=== PATIENT | male | born 1960 | race Caucasian/White ===

== ENCOUNTER 2016-11-03 13:03 | Day surgery (SDC) | payer MEDICARE, OTHER ==
[2016-11-03 14:10] VITALS: BP 128/69; PULSE 83; RESP 16; TEMP 98.1; O2SAT 95
[2016-11-03 14:20] VITALS: BP 119/64; PULSE 69; RESP 16; O2SAT 99
[2016-11-03] MEDS ORDERED: LIDOCAINE HCL 1% PF 30 ML VIAL ONE (14:27)
--- NOTE | 2016-11-03 15:58 | RADRPT ---
EXAM DATE/TIME: 11/03/2016 13:37 [place] COMPARISON: No previous studies available for comparison. EXTERNAL COMPARISON: [facility], US SOFT TISSUE NECK , Oct 24 2016. INDICATIONS : Right neck parotid gland. MEDICAL HISTORY : Hypercholesterolemia. Hypertension. SURGICAL HISTORY : Appendectomy. ENCOUNTER: Initial ACUITY: > 1 yr PAIN SCORE: 0/10 LOCATION: Right neck ORGAN: Right parotid gland SPECIMENS: Two core specimen(s) submitted for pathologic evaluation. DEVICE: 18 gauge Temno needle Post procedure scanning reveals no hematoma or other complication. The possibility does exist that the tissue obtained will be non-diagnostic. If the sample is non-kelley gnostic a repeat biopsy or surgical biopsy may need to be performed. TECHNIQUE: 1. Ultrasound guidance for needle biopsy. 2. Needle biopsy. The risks, benefits, and alternatives to ultrasound guided needle biopsy were explained to the patien t in detail including the risk of bleeding and infection. Written and verbal informed consent was ob tained. With the patient on the ultrasound table, images were obtained. Overlying skin was prepped and drape d in the usual sterile fashion and Lidocaine was utilized as a local anesthetic. A needle was advanced into the identified target and the number of specimens as above obtained and haji bmitted for pathologic evaluation. The patient tolerated the procedure well and left the ultrasound suite in stable condition. CONCLUSION: Uncomplicated ultrasound guided needle biopsy. Nicolas Silva MD on November 03, 2016 at 15:55 Board Certified Radiologist. This report was verified electronically.
[2016-12-19] MEDS ORDERED: GABA100C4 PO (13:32)
[2016-12-19] MEDS ORDERED: PRAV10TA PO (13:32)
[2016-12-19] MEDS ORDERED: VARE1PAK5 PO (13:32)
[2016-12-19] MEDS ORDERED: ATEN25TA PO (13:32)
== END 2016-11-03 14:25 | disposition home or self-care (01) ==
LOC: HRAD 13:03 → HRIP 13:05 → HRAD 14:25
PROVIDERS: ATTEND Otolaryngology Otolaryngology/Facial Plastic Surgery
DX: D11.0 Benign neoplasm of parotid gland (principal); E78.00 Pure hypercholesterolemia, unspecified; I10 Essential (primary) hypertension
CPT/HCPCS: 42400; 76942; 88305; 88307

== ENCOUNTER → 2016-12-20 | Day surgery (SDC) | payer MEDICARE, OTHER ==
[~2016-12-20] VITALS: Ht 172.7 cm; Wt 83.4 kg
[~2016-12-20] MED LIST: *morphine SULFATE 8 MG/ML PERIprocedure ONLY ONE; ACETAMINOPHEN/HYDROcodone 325 MG/7.5 MG TAB ONE; ATEN25TA PO; CHLORHEXIDINE GLUCONATE 2 % 1 PACK (2 CLOTHS) TOPICAL PRN; DO NOT ADM ANY ANTICOAGULANT DRUGS PRN; EPINEPHrine HCL (1:10,000) 1 MG/10 ML SYRINGE OTHER ONE; GABA100C4 PO; INSULIN HUMAN REGULAR 1,000 UNITS/10 ML VIAL SQ PRN; LACTATED RINGER'S 1000 ML INJ 1,000 ML IV ONE; LACTATED RINGER'S 1000 ML IV PRN; METOPROLOL TARTRATE 25 MG TAB ONE; METOPROLOL TARTRATE 25 MG TAB PO PRN; MIDAZOLAM HCL 2 MG/2 ML VIAL ONE; ONDANSETRON HCL 4 MG/2 ML VIAL IV PUSH ONE; POVIDONE IODINE 5% (ANTISEPSIS KIT) 4 APPLICATIONS EACH NARE PRN; PRAV10TA PO; PROPOFOL 200 MG/20 ML AMP IV ONE; SODIUM CHLORID 0.9% 500 ML IV PRN; SODIUM CHLORIDE 0.9% IV FLUSH ONE; VARE1PAK5 PO; ePHEDrine/NS 25 MG/5 ML SYR IV ONE; fentaNYL CITRATE 250 MCG/5 ML AMP ONE
[2016-12-20 11:45] VITALS: BP 148/77; PULSE 66; RESP 16; TEMP 98.1; O2SAT 99
[2016-12-20 12:08] LABS: AUTOMATED NEUTROPHIL # 3.5 TH/MM3 (1.8-7.7); BASOPHIL # 0.1 TH/MM3 (0-0.2); BASOPHIL % 0.8 % (0.0-2.0); EOSINOPHIL # 0.1 TH/MM3 (0-0.4); EOSINOPHIL % 1.4 % (0.0-4.0); HEMATOCRIT 45.9 % (39.0-51.0); HEMO FLAGS DIFF FINAL; LYMPH % 38.4 % (9.0-44.0); LYMPHOCYTE # 2.7 TH/MM3 (1.0-4.8); MEAN CORPUSCULAR HEMOGLOBIN 28.8 PG (27.0-34.0); MEAN CORPUSCULAR HGB CONC 33.4 % (32.0-36.0); MONO % 9.9 % (0.0-8.0); NEUT % 49.5 % (16.0-70.0); PLATELET COUNT 185 TH/MM3 (150-450); RED BLOOD COUNT 5.33 MIL/MM3 (4.50-5.90); RED CELL DISTRIBUTION WIDTH 14.5 % (11.6-17.2)
[2016-12-20 16:30] VITALS: BP 123/75; PULSE 65; RESP 16; TEMP 97.5; O2SAT 99
--- NOTE | 2016-12-20 22:50 | EKG ---
Date Performed: 12/20/2016 Time Performed: 11:44:31 PTAGE: 56 years EKG: Sinus rhythm INCOMPLETE RIGHT BUNDLE BRANCH BLOCK ABNORMAL ECG NO PREVIOUS TRACING DOCTOR: Victorina Carlos Interpretating Date/Time 12/20/2016 22:49:51
--- NOTE | 2016-12-25 14:24 | MP ---
cc: OLIVER GOLDSMITH MD DATE OF SURGERY 12/20/16 DATE OF 1960 PREOPERATIVE DIAGNOSIS Right parotid tumor. POSTOPERATIVE DIAGNOSIS Right parotid tumor PROCEDURE Right superficial parotidectomy with preservation of the facial nerve: [id number] Geovani Goldsmith JAVASCRIPT ENGINE[address] Dr. Kathy Carrera ANESTHESIA General. FINDINGS Right parotid tumor approximately 2.4 cm ESTIMATED BLOOD LOSS Minimal. SPECIMEN Right parotid tumor IMPLANTS Janny powder. COMPLICATIONS None. DISPOSITION To post anesthesia care unit in stable condition. INDICATIONS FOR SURGERY The patient is a pleasant 56-year-old male with a full blown right parotid tumor. This was confirmed with a CAT scan as well as ultrasound. 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 The patient wants to have it removed. Of note, the patient has a very strong history of smoking tobacco and he still smokes. We discussed using dixie for the skin to help with the preservation of the flap. The patient agreed. PROCEDURE IN DETAIL After informed consent was obtained, the patient's right face marked in the holding area and the area was prepped and draped in normal sterile fashion. Of note, all the preoperative risks were reiterated to include risk of facial nerve injury as well as great auricular nerve injury as well but not strictly related to bleeding, infection and scarring. The patient wished to proceed with the above. The patient underwent general endotracheal anesthesia with no long-term paralytics. The right parotid area was injected with a total of 10 mL of epinephrine 1:100,000. This was by our pharmacy. Facial nerve probes were placed in appropriate areas of the forehead orbicularis auris and orbicularis oculi. Skin incision was made in a curvilinear fashion to the adipose tissue just above the parotid fascia. Of note, there was no sharp angle for the flap as the patient is a daily smoker and has been doing it for many years. The flap was raised in fashion over the parotid fascia with dissection scissors as well as a 15 blade. The flap was made thicker as per his tobacco history and to minimize necrosis. lobe retracted posteriorly over the ear with 3-0 silk. The flap was raised circumferentially around the tumor. Dissection was done bluntly and sharply around the parotid tumor using bipolar cautery as well. Of note Dr. Carrera was very instrumental with assisting with the retraction as well as meticulous dissection around the tumor. Once we got to the medial aspect of the tumor, we confirmed that the facial nerve was not involved as well throughout the entirety of dissection. The mass was removed completely sparing the facial nerve. Bipolar was used for cautery. After the parotid tumor was removed in total, irrigation was performed with warm saline within the wound bed. Janny powder was used to coat the wound. The wound was closed in layers with 3-0 Vicryl for the deep layer and subcuticular layer and dixie were used for the skin leaving an area below the earlobe for drainage. Of note, 4-0 Prolene suture was used to approximate the earlobe where there was a previous incision. The patient tolerated procedure well and there was no further bleeding. The facial dressing was placed after Bacitracin was placed. The patient was well at the end of the procedure and in the recovery room. The facial nerve was completely intact. Oliver Goldsmith MD CCP/ /8:14 AM /2:20 PM
== END | disposition home or self-care (01) ==
LOC: HSDC 10:47
PROVIDERS: ATTEND Otolaryngology Otolaryngology/Facial Plastic Surgery
DX: D11.0 Benign neoplasm of parotid gland (principal); I10 Essential (primary) hypertension; F17.200 Nicotine dependence, unspecified, uncomplicated; Z01.818 Encounter for other preprocedural examination; Z01.810 Encounter for preprocedural cardiovascular examination
CPT/HCPCS: 00100; 42415; 85025; 88307; 93005; J0171; J2250; J2270; J2405; J3010; J7120